=== PATIENT | female | born 1955 | race African-American/Black ===

== ENCOUNTER 2017-02-01 17:25 | Emergency (ER) | payer OTHER ==
[~2017-02-01] VITALS: Ht 160 cm; Wt 71.7 kg
[2017-02-01] MEDS ORDERED: PERCOCET 5/31 TABLET PO (21:52)
[2017-02-01] MEDS ORDERED: MEDROL DOSEPAK4 MG PO (21:52)
[2017-02-01 22:23] VITALS: BP 119/69
== END 2017-02-01 22:24 | disposition home or self-care (01) ==
LOC: EXP 17:25 → EME 17:25 → EXP 22:24
DX: M54.31 Sciatica, right side (principal); E11.9 Type 2 diabetes mellitus without complications; I10 Essential (primary) hypertension
CPT/HCPCS: 93971; 99281; 99284; J7512

== ENCOUNTER 2017-04-24 11:33 | Emergency (ER) | payer OTHER ==
[~2017-04-24] VITALS: Ht 160 cm; Wt 70.2 kg
[~2017-04-24 11:33] MED LIST: MEDROL DOSEPAK4 MG PO; PERCOCET 5/31 TABLET PO
[2017-04-24] MEDS ORDERED: MOBIC7.5 MG PO (15:16)
[2017-04-24] MEDS ORDERED: PERCOCET 5/31 TABLET PO (15:16)
[2017-04-24] MEDS ORDERED: CEFDINIR300 MG PO (15:16)
[2017-04-24 15:19] LABS: POINT-OF-CARE METER ID UU13113800
[2017-04-24 15:26] VITALS: BP 168/68
== END 2017-04-24 15:26 | disposition home or self-care (01) ==
LOC: EME 11:33
PROVIDERS: Physician Assistant
DX: G62.9 Polyneuropathy, unspecified (principal); J01.90 Acute sinusitis, unspecified; I10 Essential (primary) hypertension; E11.9 Type 2 diabetes mellitus without complications; Z79.4 Long term (current) use of insulin
CPT/HCPCS: 82948; 99281; 99283